=== PATIENT | male | born 1950 | race Caucasian/White ===

== ENCOUNTER → 2024-01-16 16:45 | Outpatient (REF) | payer BC, SELFPAY | LOC: RAD 16:45 | PROVIDERS: ATTENDING PHYSICIAN Orthopaedic Surgery; FAMILY PHYSICIAN Internal Medicine | DX: M79.661 Pain in right lower leg (principal) | CPT/HCPCS: 93971 ==

== ENCOUNTER 2024-01-23 17:57 | Inpatient (IN) | payer BC, MEDICARE, SELFPAY ==
[2024-01-23 14:59] VITALS: BP 133/71
[2024-01-23 16:15] LABS: % Basophils 0.9 % (0-2); % Eosinophils 3.9 % (0-6); % Immature Granulocytes 0.3 % (0-0.5); % Monocytes 8.5 % (1.7-9.3); % Neutrophils 61.4 % (42.2-75.2); Absolute Basophils 0.1 10^3/uL (0-0.2); Absolute Eosinophils 0.3 10^3/uL (0-0.7); Absolute Monocytes 0.7 10^3/uL (0.1-0.6); Absolute Neutrophils 4.8 10^3/uL (1.4-6.5); Hematocrit 39.1 % (39.0-52.0); Hemoglobin 13.8 g/dL (13.0-18.0); Mean Corp Hgb Conc. 35.3 g/dL (33.0-37.0); Mean Corpuscular Hgb 33.7 pg (27.0-31.0); Mean Corpuscular Volume 95.4 fL (80.0-94.0); Mean Platelet Volume 8.7 fL (7.4-10.4); Nucleated Red Blood Cells % 0 % (-); Platelet Count 227 10^3/uL (130-400); Red Cell Dist. Width 12.8 % (11.5-14.5); White Blood Cell Count 7.9 10^3/uL (4.8-10.8)
[2024-01-23 16:31] LABS: Blood Urea Nitrogen 17 mg/dl (9-20); Calcium 9.5 mg/dl (8.4-10.2); Carbon Dioxide 25 mmol/L (22-30); Chloride 106 mmol/L (98-107); Glucose 92 mg/dl (70-99); Sodium 139 mmol/L (135-145); eGFR > 60.00
[2024-01-23 16:41] VITALS: BMI 24.7
--- NOTE | 2024-01-23 16:49 | ED.GENMED ---
History of Present Illness
General
Chief Complaint: Skin Problem
Source: patient
Exam Limitations: none
Time Seen by Provider: 01/23/24 15:38
Nursing documentation reviewed up to this point in time: agreed with
Travel History
Have you had any contact with someone who has COVID-19?: No
Do you have any symptoms of coronavirus? Fever > 100 degrees, chills, cough, shortness of breath, sore throat, loss of taste or smell, muscle aches, or headache?: No
History of Present Illness
History of Present Illness:
73 y/o M with h/o parkinsons
2 weeks ago he acctually banged his right lower extremity/laureano on a milk crate which opened the skin and had a hematoma/bruise
he didn't tell his for a ew days
was having some soreness to lower leg and ankle and swelling
went to PCP on 01/14 and got started on oral abx keflex 500 mg bid and had neg xrays of tib/fib/ankle and neg dvt study
pt has had worsening of redness/warmth
had follow up with the pcp today who wanted him admitted for IV abx
the says the area looks more bruised now than it was
on US there was a hematoma visualized in the right anterior lower leg
he has not had fever, chills, rigos, nausea, vomiting
Past History
Past History
ED Past Medical History: Other (parkinsons)
ED Past Surgical History: None
Social History
Tobacco: Non-smoker
Alcohol: None
Drug: None
Personal:
Review of Systems
Review of Systems
Allergies reviewed?: Yes
All Other Systems: Not applicable
Phy Exam
Physical Exam
Physical Exam:
GENERAL: Alert , in no apparent distress
EYE: pupils equal and reactive
NECK: Supple
ENT: o/p clr, mmm.
CARDIAC: Regular rate and rhythm .
LUNGS: Clear breath sounds bilaterally, no acute respiratory distress, no wheezes/rales/rhonchi
ABDOMEN: Soft, without focal tenderness, no r/g, no cvat, normal bowel sounds
NEUROLOGICAL: Alert and oriented, no focal neuro deficits
SKIN: Warm and dry, patient has an anterior area to the lower leg
That appears to be a soft tissue swelling with a hematoma with overlying scabs without drainage, there is surrounding erythema about half of the lower extremity from the ankle to the mid anterior tibial region, the whole calf is swollen as well as
the ankle and the foot, there is bruising to the toes and laterally on the foot without tenderness
MUSCULOSKELETAL: Moderate edema in the right lower extremity with ecchymosis and what looks like cellulitis surrounding hematoma
PSYCH: Normal and appropriate interaction.
Course
Orders/Labs/Results
Orders:
Orders
01/23/24 15:40
Basic Metabolic Panel Urgent
Complete Blood Count/With Diff Urgent
01/23/24 16:46
Vancomycin [Vancocin] 1,500 mg 0.9% Sodium Chloride [Nss] 20 ml 0.9% Sodium Chloride 250 ml [Nss] 250 ml IV NOW
Abnormal Lab Results
01/23/24
15:40
RBC 4.10 L 10^6/uL
(4.70-6.10)
MCV 95.4 H fL
(80.0-94.0)
MCH 33.7 H pg
(27.0-31.0)
Absolute Monos (auto) 0.7 H 10^3/uL
(0.1-0.6)
Creatinine 0.6 L mg/dL
(0.7-1.3)
01/23/24 15:40
01/23/24 15:40
Vital Signs
Initial and Last Documented VS:
Initial Vital Signs
Temp Pulse Resp BP Pulse Ox
99.0 F 60 18 133/71 96
01/23/24 14:59 01/23/24 14:59 01/23/24 14:59 01/23/24 14:59 01/23/24 14:59
Last Documented Vital Signs
Temp Pulse Resp BP Pulse Ox
99.0 F 60 18 133/71 96
01/23/24 14:59 01/23/24 14:59 01/23/24 14:59 01/23/24 14:59 01/23/24 14:59
MDM/Problems Addressed
Differential Diagnosis Includes:
Infected hematoma, cellulitis, failure of outpatient therapy
MDM/Problems Addressed:
73-year-old male with history of Parkinson's presents with a hematoma to his right lower extremity from banging her scraping against a milk crate 2 weeks ago, 5 days of cefadroxil twice daily dosing of 500 mg without improvement, sent by PCP for
admission for IV antibiotics. The area does look to be less than half of the lower extremity with some warmth but no drainage, he has a normal pulse, it does look like it is a hematoma and this was visualized on previous ultrasound last week.
There is some cellulitis there
Patient's white count is normal, temp was borderline at 99. Will initiate an IV dose of vancomycin and admit to the hospitalist
*Critical Care Note
Total Time (30-74mins, 75-104mins- exclusive of procedures): Not Applicable
ED Attending Note
-
Portions of this chart may have been created with voice recognition software.� Occasional wrong word or��sound alike� substitutions may have occurred due to the inherent limitations of voice recognition software.
Discharge Plan
Departure
Patient Disposition: Admit
Date of Disposition: 01/23/24
Time of Disposition: 16:47
Admit to: Med/Surg
Presentation/result/management discussed w/ accepting MD/DO: Hospitalist
Patient with high blood pressure during this ER visit?: No
Covid-19: Not Applicable
Discharge Problem:
Infected hematoma, Cellulitis, failure of outpatient antibiotics
Prescriptions:
No Action
thiamine HCl (vitamin B1) 500 mg Tablet
2,000 mg PO BID
cefadroxil 500 mg Capsule
500 mg PO Q12H
Patient Comments:
01/23/24- filled 01/16/24, takes 1 capsule every 12 hours for 10 days
carbidopa-levodopa 25-100 mg Tablet
1 tab PO TID
rasagiline 1 mg Tablet
1 mg PO DAILY
turmeric 400 mg Capsule
400 mg PO DAILY
Mushroom Vitamin capsule
1 cap PO DAILY
vitamin D3-vitamin K2 capsule
1 cap PO DAILY
Referrals:
Mariza Pool MD [Family Provider] -
Interventions
Interventions:
*Risk Screen - Suicide Last Done: 01/23/24 14:59
*General Assessment Last Done: 01/23/24 15:28
*Neglect/Abuse Screening Last Done: 01/23/24 15:28
*ED COVID-19 Vaccine History Last Done: 01/23/24 15:28
ED-Skin Assessment Last Done: 01/23/24 15:28
Discharge Date and Time
Print Language: ANDORRAN
[2024-01-23] MEDS: VANCOCIN 300 ML IV (17:14)
[2024-01-23] MEDS: VANCOCIN 300 MG IV (17:14)
--- NOTE | 2024-01-23 17:21 | HPS.HSE ---
Family Physician
-
Family Physician: Mariza Pool
Chief Complaint
-
Right lower leg cellular
History of Present Illness
73 years old male came from home. Patient tripped over a crate more than a week ago and developed bruising and injury to the right lower leg and right foot. He went to his a primary care doctor and was referred to an orthopedic doctor. He had an
x-ray, ultrasound that were both normal and was given course of oral antibiotic cefadroxil. The foot continued to have redness and erythema around anterior surface of the right laureano area. No fever or chills. He was referred to the hospital for IV
antibiotics. He did not have leukocytosis.
Medical History
Past Medical History
Past Medical History: Reports Other (Parkinson disease)
Past Surgical History: Reports Other (No recent major surgery)
Social History
Tobacco: Other (Smokes cigars at time)
Alcohol: Daily
Drug: None and Former User
Personal:
Living: With Family
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
Family History
Family History: Not pertinent
Allergies / Home Medications
Allergies reflects when Allergies were last updated in [facility].
Home Medications with original date entered in [facility]
Allergy/Medication List:
Allergies
Allergy/AdvReac Type Severity Reaction Status Date / Time
No Known Allergies Allergy Verified 01/23/24 15:01
Home Medications
Mushroom Vitamin 1 cap PO DAILY Supplement 01/23/24
carbidopa 25 mg-levodopa 100 mg tablet 1 tab PO TID Neurological Condition 01/23/24
cefadroxil 500 mg capsule 500 mg PO Q12H Infection 01/23/24
rasagiline 1 mg tablet 1 mg PO DAILY Neurological Condition 01/23/24
thiamine HCl (vitamin B1) 500 mg tablet 2,000 mg PO BID Supplement 01/23/24
turmeric 400 mg capsule 400 mg PO DAILY Supplement 01/23/24
vitamin D3-vitamin K2 1 cap PO DAILY Supplement 01/23/24
Review of Systems
-
History Source: Patient
A 12 point ROS was completed and negative except as noted: Yes
Constitutional: Denies Fever or Chills
EENT: Denies Sore Throat
Respiratory: Denies Cough
Cardiac: Denies Chest Pain
Abdomen/GI: Denies Abdominal Pain
: Denies Dysuria
Musculoskeletal: Denies Joint Pain or Joint Swelling
Neurological: Denies Headache
Endocrine: Denies Temp Intolerance
Hematologic/Lymphatic: Denies Bruising
Psych: Denies Panic Disorder
Physical Exam
Vital Signs
Vital Signs
Temp Pulse Resp BP Pulse Ox
99.0 F 60 18 133/71 96
01/23/24 14:59 01/23/24 14:59 01/23/24 14:59 01/23/24 14:59 01/23/24 14:59
Physical Exam
General: No Apparent Distress and Comfortable
HEENT: Moist mucous membranes and Atraumatic
Respiratory: Clear
Cardiac: S1/S2 and Regular Rhythm
GI: Soft and Non Tender
Genito-urinary: No costovertebral tender
Musculoskeletal: Other (Right lower extremity for by 5 cm erythema with redness, healing scabs on the wound)
Skin: Warm; No Jaundice
Neuro: AO x 3; No Slurred Speech, Facial Droop or Tremors
Psych: Calm and Intact Judgment/Insight
Laboratory Results
-
01/23/24 15:40
01/23/24 15:40
Laboratory Results
Total Bilirubin Cancelled 01/23/24 15:40
AST Cancelled 01/23/24 15:40
ALT Cancelled 01/23/24 15:40
Alkaline Phosphatase Cancelled 01/23/24 15:40
Impression/Plan
-
73 years old male presented with right lower extremity cellulitis following a trauma
# Right lower leg cellulitis
Admit the patient to the hospital. No signs of systemic manifestation of infection. No fever. No leukocytosis. Patient had ultrasound that did not show DVT. He had visit with orthopedic doctor Melinda, x-ray was done (not available to us)
reportedly no fracture. Patient has been going to work and able to ambulate without pain.
Right lower extremity wound/erythema measures 5 x 4 cm with redness, mildly warm and healing scabs on the wound. Mildly tender on 1 side
Will do Tl wrap of the right lower extremity to decrease swelling
Will do IV Ancef
Will consult ID for further recommendation
# History of Parkinson disease, will continue with rasagiline and Sinemet dose
No recent change to medications.
History of stiffness especially on starting of movements. Order PT/OT.
# DVT prophylaxis with subcu heparin
Total time spent to see the patient, examine the patient on the floor, review data and lab results, discuss treatment plan with patient, ER doctor, nursing staff around 75 minutes
[2024-01-23 18:22] VITALS: BP 114/69; BMI 28.5
[2024-01-23] MEDS: HEPARIN 5000 UNITS SC (20:13)
[2024-01-23] MEDS: ANCEF 5 IV (20:30)
[2024-01-23] MEDS: SINEMET 25-100 1 TABLET PO (21:31)
[2024-01-23 23:02] VITALS: BP 141/68
[2024-01-24] MEDS: ANCEF 5 IV ×2 (04:00→11:47)
[2024-01-24 07:25] VITALS: BP 142/74
[2024-01-24] MEDS: SINEMET 25-100 1 TABLET PO (08:22)
[2024-01-24] MEDS: RASAGILINE MESYLATE 1 MG PO (08:22)
[2024-01-24] MEDS: HEPARIN 5000 UNITS SC (08:23)
--- NOTE | 2024-01-24 10:05 | W.PN.HOSP.TC ---
Addendum entered and electronically signed by Jace Harmon MD 01/24/24 14:19:
Addendum
d/w ID doctor, no need for ABx , ok to discharge
Total discharge time spent to see the patient, examine the patient on the floor, review data and lab results, discuss discharge plan with patient, ID doctor, nursing staff around 65 minutes
Original Note:
Today's Communication/Plan
-
Good clinical improvement
Tl wrap and elevated the leg if possible as able
Assessment / Plan
Assessment / Plan
Physical Exam
General: No Apparent Distress and Comfortable
HEENT: Moist mucous membranes and Atraumatic
Respiratory: Clear
Cardiac: S1/S2 and Regular Rhythm
GI: Soft and Non Tender
Genito-urinary: No costovertebral tender
Musculoskeletal: Other (Right lower extremity for by 5 cm erythema with redness, healing scabs on the wound)
Skin: Warm; No Jaundice
Neuro: AO x 3; No Slurred Speech, Facial Droop or Tremors
Psych: Calm and Intact Judgment/Insight
73 years old male presented with right lower extremity cellulitis following a trauma
# Right lower leg cellulitis
Good clinical improvement
received IV Ancef
Tl wrap and elevation, less edema and erythema noted, no tenderness.
He was sent to hospital for iD evaluation and IV ABx. Appreciate ID help
# History of Parkinson disease, will continue with rasagiline and Sinemet dose
No recent change to medications.
History of stiffness especially on starting of movements. Order PT/OT.
# DVT prophylaxis with subcu heparin
Total dc time spent to see the patient, examine the patient on the floor, review data and lab results, discuss discharge/ treatment plan with patient, nursing staff around 65 minutes
Anticipated Discharge: Within 24 hours
Subjective/Interval History
-
Date of Service: January 24, 2024
Leg erythema is much better, less edema, he denies swelling
Objective Data
-
Vital Signs:
Vital Signs
Temp Pulse Resp BP Pulse Ox
97.9 F 52 16 142/74 99
01/24/24 07:25 01/24/24 07:25 01/24/24 07:25 01/24/24 07:25 01/24/24 08:41
I&O
01/23/24 01/24/24 01/25/24
06:59 06:59 06:59
Intake Total 220 / 220
Output Total 550 / 550
Balance -330 / -330
--- NOTE | 2024-01-24 13:42 | CON.ID ---
Consultation
-
Date/Time Consultation Requested: 01/23/2024 18:06
Date/Time Consultation Performed: 01/24/2024 1330
Requesting Provider: Dr. Harmon
Performing Provider: Dr. Hua
Reason for Consultation: Cellulitis
Chief Complaint / Past History
History of Present Illness
Alejo Monaco is a 73-year-old man with a underlying history of Parkinson's disease being evaluated at the request of Dr. Harmon in regards to right lower extremity cellulitis. History is obtained from chart review along with patient interview.
According to reviewed history, the patient sustained trauma to his right lower extremity/laureano area approximately 2 weeks prior. Over the intervening time he has had increasing soreness to the leg along with progressive swelling and erythema. He
saw his family physician on 01/14 and was started on oral Keflex, but despite antibiotics the erythema persisted, and actually grew worse. He saw his PCP yesterday who advised ER evaluation and IV antibiotics.
Currently patient reports minimal discomfort in the area. He denies spreading erythema towards the knee, and denies any inguinal swelling or adenopathy.
Past History
Additional Past Medical History:
Parkinson's disease
Past Surgical History: None
Allergy History:
No Known Allergies Allergy (Verified 01/23/24 15:01)
Medications Reviewed: Yes
Current Antibiotics:
Cefazolin 1 g IV every 8 hours
Social History
Tobacco: Non-Smoker
Alcohol: None
Drug: None
Personal:
Living: With Family
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
Family History
Family History: Not Pertinent
Review of Systems
Vital Signs
Temp Pulse Resp BP Pulse Ox
97.9 F 52 16 142/74 99
01/24/24 07:25 01/24/24 07:25 01/24/24 07:25 01/24/24 07:25 01/24/24 08:41
Physical Exam
Physical Exam
Constitutional: No Acute Distress, Comfortable and Non-toxic
Eyes: Sclera Anicteric
Cardiovascular: S1/S2; Negative S3/S4
Pulmonary: Clear and Non Labored
Gastrointestinal: Soft, Non Tender and Non Distended
Extremities: Edema (Right lower extremity), Erythema (Right lower extremity and pretibial area) and Pulses; Negative Calf Swelling or Venous Insufficiency
Skin: Warm and Dry; Negative Rash or Jaundice
Wound: Other (Several dry crust on the anterior right laureano.)
Neurological: Awake, Alert and Oriented
Psychological: Calm
Lab / Diagnostic Study Results
01/23/24 15:40
01/23/24 15:40
Abs Immat Gran (auto) 0.0 10^3/uL (0-0.05) 01/23/24 15:40
Absolute Neuts (auto) 4.8 10^3/uL (1.4-6.5) 01/23/24 15:40
Absolute Lymphs (auto) 2.0 10^3/uL (1.2-3.4) 01/23/24 15:40
Absolute Monos (auto) 0.7 10^3/uL (0.1-0.6) H 01/23/24 15:40
Absolute Basos (auto) 0.1 10^3/uL (0-0.2) 01/23/24 15:40
Immature Gran % 0.3 % (0-0.5) 01/23/24 15:40
Neutrophils % 61.4 % (42.2-75.2) 01/23/24 15:40
Lymphocytes % 25.0 % (20.5-51.1) 01/23/24 15:40
Monocytes % 8.5 % (1.7-9.3) 01/23/24 15:40
Eosinophils % 3.9 % (0-6) 01/23/24 15:40
Basophils % 0.9 % (0-2) 01/23/24 15:40
Microbiology Results
Micro:
01/23/24 19:00 MRSA Screen - Pending
Nose
Imaging:
01/16/2024 Duplex ultrasound right lower extremity: No evidence of DVT. A fusiform heterogeneous soft tissue mass in the anterior aspect of the right lower leg consistent with hematoma/seroma measures approximately 0.9 x 4.2 x 7.6 cm.
Assessment / Plan
Right lower extremity hematoma
Overlying erythroderma; suspect secondary to hematoma rather than cellulitis
Hx Parkinson's
Recommendations:
Doubt the need for further antibiotic therapy.
I have counseled the patient to obtain Tubigrip's from a local pharmacy following discharge.
Lower extremity elevation approximately 1 hour out of every 6.
Counseled patient and that resolution of edema and erythroderma may take at least several weeks
Care Review
Plan reviewed with: Physician (Hospitalist)
--- NOTE | 2024-01-24 14:23 | W.DCSUMMARY ---
Discharge Summary
Discharge Data
Date of Admission: 01/23/24
Date of Discharge: 01/24/24
-
Pending Results: No
Hospital Course
73 years old male admitted with right lower extremity hematoma. He had overlying erythroderma and that was suspected to be related to hematoma rather than cellulitis. He did not have leukocytosis or fever. He had ultrasound that did not show
deep venous thrombosis fusiform heterogenous soft tissue mass consistent with hematoma/seroma. Patient took oral antibiotic therapy without improvement in the erythema. Patient was evaluated by [facility] delivery consultant and recommended lower
extremity elevation approximately 1 hour out of every 6 hours, use of Tubigrip as possible. Patient remained hemodynamically stable. He was discharged home in stable condition.
Discharge Plan
-
Patient Disposition: Home (Routine Discharge)
Discharge Diagnosis/Procedures: Right lower extremity hematoma
Continue to elevate right lower extremity at least 1 hour out of every 6 hours. Use Tubigrip as possible.
Condition: Good
Diet: As tolerated
Referrals:
Mariza Pool MD [Family Provider] -
Prescriptions:
Continued
thiamine HCl (vitamin B1) 500 mg Tablet
2,000 mg PO BID
carbidopa-levodopa 25-100 mg Tablet
1 tab PO TID
rasagiline 1 mg Tablet
1 mg PO DAILY
turmeric 400 mg Capsule
400 mg PO DAILY
Mushroom Vitamin capsule
1 cap PO DAILY
vitamin D3-vitamin K2 capsule
1 cap PO DAILY
Discontinued
cefadroxil 500 mg Capsule
500 mg PO Q12H
Patient Comments:
01/23/24- filled 01/16/24, takes 1 capsule every 12 hours for 10 days
Discharge Orders:
Discharge Patient (As Directed); Ordered 01/24/24
Ordered By: Jace Harmon
Discharge Date and Time
Print Language: SAUDI ARABIAN
--- NOTE | 2024-01-24 14:44 | CM ---
Patient seen with , patient for discharge today. Patient reports he resides with his in a multiple story home, two steps to enter. Patient denies DME, VN, or SNF. Patient confirms PCP Mariza Pool, pharmacy [facility]. Patient
denies any needs upon discharge.
IMM reviewed, per , patient does not have Medicare insurance. IMM not signed. CM will continue to follow for discharge planning needs.
Plan; home no needs.
[2024-01-24 15:02] VITALS: BP 123/67
== END 2024-01-24 15:03 | disposition home or self-care (01) | DRG 605 ==
LOC: 4 WEST ACU 17:57
PROVIDERS: Emergency Medicine; ADMITTING PHYSICIAN Internal Medicine; CONSULT PHYSICIAN Internal Medicine Infectious Disease; EMERGENCY PHYSICIAN Student in an Organized Health Care Education/Training Program; FAMILY PHYSICIAN Internal Medicine
DX: S80.11XA Contusion of right lower leg, initial encounter (principal); W22.8XXA Striking against or struck by other objects, initial encounter; G20.A1 Parkinson's disease without dyskinesia, without mention of fluctuations; F17.290 Nicotine dependence, other tobacco product, uncomplicated
CPT/HCPCS: 80048; 85025; 87070; 96365; 97162; 99284